=== PATIENT | female | born 1990 | race Hispanic/Latino ===

== ENCOUNTER → 2016-10-21 | Outpatient (CLI) | payer BC ==
[2016-10-21 17:25] LABS: CHLORIDE,CL 107 mmol/L (98-110); SODIUM,NA 140 mmol/L (136-146)
== END ==
LOC: MW.CHOBGYN 16:45
PROVIDERS: ATTEND Nurse Practitioner Women's Health
DX: Z34.90 Encounter for supervision of normal pregnancy, unspecified, unspecified trimester (principal)
CPT/HCPCS: 36415; 80053

== ENCOUNTER → 2016-11-10 | Outpatient (CLI) | payer BC | LOC: MW.CHOBGYN 11:40 | PROVIDERS: ATTEND Advanced Practice Midwife | DX: Z34.90 Encounter for supervision of normal pregnancy, unspecified, unspecified trimester (principal) | CPT/HCPCS: 87081; 87480; 87510; 87660 ==

== ENCOUNTER 2016-12-02 11:01 | Inpatient (IN) | payer BC ==
[2016-12-02] MEDS ORDERED: Misoprostol 200 MCG Tab PO PRN (11:58)
[2016-12-02] MEDS ORDERED: Sodium Chloride 0.9% 10 ML Syringe FLUSH PRN (11:58)
[2016-12-02] MEDS ORDERED: Sodium Chloride 0.9% 2.5 ML Syringe FLUSH PRN (11:58)
[2016-12-02] MEDS ORDERED: Terbutaline 1 MG/ML SDV SUBCUT PRN (11:58)
[2016-12-02] MEDS ORDERED: Water For Irrigation,Sterile 1,000 ML Container IRR PRN (11:58)
[2016-12-02] MEDS ORDERED: Lidocaine 1% 50 ML MDV INJECT PRN (11:58)
[2016-12-02] MEDS ORDERED: Nalbuphine 10 MG/1 ML Vial IVPUSH PRN (11:58)
[2016-12-02] MEDS ORDERED: Methylergonovine 0.2 MG/1 ML Amp IM PRN (11:58)
[2016-12-02] MEDS ORDERED: Butorphanol 1 MG/ML SDV IVPUSH PRN (11:58)
[2016-12-02] MEDS ORDERED: Carboprost Tromethamine 250 MCG/1 ML Amp IM PRN (11:58)
[2016-12-02] MEDS ORDERED: Oxytocin/Lactated Ringers 30 UNIT/500 ML BAG IV SCH ×2 (12:00→18:00)
--- NOTE | 2016-12-02 12:08 | PCM.LDHP ---
L&D History of Present Illness - General Date of Service: 12/02/16 Admit Problem/Dx: Admission Diagnosis/Problem Admission Diagnosis/Problem Source of Information: Patient History Limitations: Reports: No limitations - History of Present Illness Improves with: Reports: None Worsens with: Reports: None Associated Symptoms: Reports: N H&P Review of Systems - Review of Systems: Review Of Systems: See Below General: Reports: no symptoms HEENT: Reports: no symptoms Pulmonary: Reports: No Symptoms Cardiovascular: Reports: no symptoms Gastrointestinal: Reports: No symptoms Genitourinary: Reports: no symptoms Musculoskeletal: Reports: no symptoms Skin: Reports: no symptoms Psychiatric: Reports: no symptoms Neurological: Reports: No Symptoms Hematologic/Lymphatic: Reports: no symptoms Immunologic: Reports: no symptoms L&D Exam - Exam Exam: See Below - OB Specific Fundal Height in cm: 37 Contraction Intensity: Mild to Moderate movement: active heart tones: present Presentation: Vertex Problem List Initiated/Reviewed/Updated: Yes Assessment/Plan Comment:: Term followed in the clinic without any problem presented today to her appointment with a mild contraction and bloody show with a possibility of spontaneous rupture of the membrane that was confirmed by Amnisure cervical examination the patient is dilated to 1/90/v/-1. Planning to admit her and start her on Cytotec and Pitocin as per protocol.
[2016-12-02] MEDS ORDERED: Misoprostol 25 MCG (1/4 of 100 MCG) Tab PO SCH (12:30)
[2016-12-02] MEDS ORDERED: Misoprostol 25 MCG (1/4 of 100 MCG) Tab VAG SCH (12:30)
[2016-12-02] MEDS ORDERED: Misoprostol 25 MCG (1/4 of 100 MCG) Tab PO PRN (16:30)
[2016-12-02] MEDS ORDERED: Misoprostol 25 MCG (1/4 of 100 MCG) Tab VAG PRN (16:30)
--- NOTE | 2016-12-02 20:57 | PCM.PREANE ---
Preanesthetic Assessment - Anesthesia/Transfusion/Family Hx Anesthesia History: Prior Anesthesia Without Reaction Transfusion History: No Prior Transfusion(s) - Review of Systems General: No Symptoms Pulmonary: No Symptoms Cardiovascular: No Symptoms Gastrointestinal: No symptoms Neurological: No Symptoms Other: Reports: None - Physical Assessment Pulse: 100 O2 Sat by Pulse Oximetry: 98 Respiratory Rate: 22 Blood Pressure: 136/93 Height: 4 ft 11 in Weight: 69.853 kg ASA Class: 2 Mental Status: Alert & Oriented x3 Airway Class: Mallampati = 2 Dentition: Reports: Normal Dentition Thyro-Mental Finger Breadths: 3 Mouth Opening Finger Breadths: 3 ROM/Head Extension: Full Lungs: Clear to auscultation, Normal respiratory effort Cardiovascular: Regular Rate, Regular Rhythm - Lab Values: Laboratory Last Values WBC 9.96 K/uL (4.0-11.0) 12/02/16 12:23 RBC 4.18 M/uL (4.30-5.90) L 12/02/16 12:23 Hgb 11.0 g/dL (12.0-16.0) L 12/02/16 12:23 Hct 35.1 % (36.0-46.0) L 12/02/16 12:23 MCV 84.0 fL (80.0-98.0) 12/02/16 12:23 MCH 26.3 pg (27.0-32.0) L 12/02/16 12:23 MCHC 31.3 g/dL (31.0-37.0) 12/02/16 12:23 RDW Std Deviation 43.4 fl (28.0-62.0) 12/02/16 12:23 RDW Coeff of Oskar 14 % (11.0-15.0) 12/02/16 12:23 Plt Count 244 K/uL (150-400) 12/02/16 12:23 MPV 10.90 fL (7.40-12.00) 12/02/16 12:23 Nucleated RBC % 0.0 /100WBC 12/02/16 12:23 Nucleated RBCs # 0 K/uL 12/02/16 12:23 Blood Type O POSITIVE 12/02/16 12:23 Antibody Screen NEGATIVE 12/02/16 12:23 - Allergies Allergies/Adverse Reactions: Allergies Allergy/AdvReac Type Severity Reaction Status Date / Time hydroquinone Allergy Rash Verified 12/02/16 12:12 - Acknowledgements Anesthesia Type Planned: Epidural Pt an Appropriate Candidate for the Planned Anesthesia: Yes Alternatives and Risks of Anesthesia Discussed w Pt/Guardian: Yes Pt/Guardian Understands and Agrees with Anesthesia Plan: Yes PreAnesthesia Questionnaire HEENT History: Reports: None Cardiovascular History: Reports: None Respiratory History: Reports: None Gastrointestinal History: Reports: None Genitourinary History: Reports: None [employer] OFFICER History: Reports: : 1 Para: 0 LMP (Approximate): Musculoskeletal History: Reports: None Neurological History: Reports: None Psychiatric History: Reports: None Endocrine/Metabolic History: Reports: None Hematologic History: Reports: None Immunologic History: Reports: None Oncologic (Cancer) History: Reports: None Dermatologic History: Reports: None - Infectious Disease History Infectious Disease History: Reports: Chicken pox - SUBSTANCE USE Smoking Status *Q: Never Smoker Second Hand Smoke Exposure: No Recreational Drug Use History: No - CURRENT (IN HOUSE) MEDS Current Meds: Current Medications Butorphanol Tartrate (Stadol) 1 mg IVPUSH Q1H PRN PRN Reason: Pain Carboprost Tromethamine (Hemabate Ds) 250 mcg IM ASDIRECTED PRN PRN Reason: Post Hemorrhage Lactated Ringer's (Ringers, Lactated) 1,000 mls @ 150 mls/hr IV ASDIRECTED ODILIA Oxytocin/Lactated Ringer's (Pitocin In Lr 30 Units/500 Ml) 30 unit in 500 mls @ 2 mls/hr IV TITRATE ODILIA; 2 MUNITS/MIN PRN Reason: Protocol Lidocaine HCl (Xylocaine 1%) 50 ml INJECT .ONCE PRN PRN Reason: Laceration repair Methylergonovine Maleate (Methergine) 0.2 mg IM ASDIRECTED PRN PRN Reason: Post Hemorrhage Misoprostol (Cytotec) 200 mcg PO .ONCE PRN PRN Reason: Post Hemorrhage Misoprostol (Cytotec) 25 mcg VAG .ONCE ODILIA Last Admin: 12/02/16 12:48 Dose: 25 mcg Misoprostol (Cytotec) 25 mcg VAG Q4H PRN PRN Reason: Cervical Ripening Stop: 12/03/16 20:31 Misoprostol (Cytotec) 25 mcg PO .ONCE ODILIA Last Admin: 12/02/16 12:48 Dose: 25 mcg Misoprostol (Cytotec) 25 mcg PO Q4H PRN PRN Reason: Cervical Ripening Stop: 12/03/16 20:31 Sodium Chloride (Saline Flush) 10 ml FLUSH ASDIRECTED PRN PRN Reason: Keep Vein Open Sodium Chloride (Saline Flush) 2.5 ml FLUSH ASDIRECTED PRN PRN Reason: Keep Vein Open Sterile Water (Sterile Water For Irrigation) 1,000 ml IRR ASDIRECTED PRN PRN Reason: delivery Terbutaline Sulfate (Brethine) 0.25 mg SUBCUT ASDIRECTED PRN PRN Reason: Tacysystole Discontinued Medications Oxytocin/Lactated Ringer's (Pitocin In Lr 30 Units/500 Ml) 30 unit in 500 mls @ 999 mls/hr IV TITRATE ODILIA PRN Reason: 999 MUNITS/MIN Stop: 12/02/16 12:31 Nalbuphine HCl (Nubain) 10 mg IVPUSH Q1H PRN PRN Reason: Pain (severe 7-10) Stop: 12/02/16 13:59
[2016-12-02] MEDS ORDERED: fentaNYL 100 MCG/2 ML SDV ONE (20:58)
[2016-12-02] MEDS ORDERED: Ropivacaine HCl/PF 100 ML ONE (20:59)
[2016-12-02] MEDS: Lactated Ringers 1,000 ML IV SCH (21:20)
[2016-12-03] MEDS ORDERED: ceFAZolin 2 GM in Premix Bag 1 BAG IV ONE (04:36)
[2016-12-03] MEDS ORDERED: Sodium Chloride 0.9% 2.5 ML Syringe FLUSH PRN (04:36)
[2016-12-03] MEDS ORDERED: Sodium Chloride 0.9% 10 ML Syringe FLUSH PRN (04:36)
[2016-12-03] MEDS ORDERED: Oxytocin 10 Units/1 ML SDV ONE (04:45)
[2016-12-03] MEDS ORDERED: Lactated Ringers 1,000 ML IV SCH (04:45)
[2016-12-03] MEDS: Lactated Ringers 1,000 ML IV SCH ×3 (04:45→17:35)
[2016-12-03] MEDS ORDERED: Ondansetron 4 MG/2 ML SDV ONE (04:45)
[2016-12-03] MEDS ORDERED: Citric Acid/Sodium Citrate Solution 30 ML Cup PO SCH (04:45)
[2016-12-03] MEDS ORDERED: Morphine PF 10 MG/10 ML SDV ONE (04:46)
[2016-12-03] MEDS ORDERED: ePHEDrine 50 MG/ML SDV ONE (04:47)
[2016-12-03] MEDS ORDERED: Sodium Chloride 0.9% 20 ML ONE (04:47)
[2016-12-03] MEDS ORDERED: ceFAZolin 1 GM Vial ONE (04:47)
[2016-12-03] MEDS ORDERED: Bupivacaine 0.5% 10 ML SDV ONE (04:52)
[2016-12-03] MEDS ORDERED: Nalbuphine 10 MG/1 ML Vial IVPUSH PRN (04:54)
[2016-12-03] MEDS ORDERED: fentaNYL 100 MCG/2 ML SDV IVPUSH PRN (04:54)
[2016-12-03] MEDS ORDERED: Acetaminophen/oxyCODONE 325-5 MG Tab PO PRN ×2 (04:54→05:54)
--- NOTE | 2016-12-03 04:56 | PCM.SN ---
- Free Text/Narrative Note: C section called for second stage labor arrest. Pt complete for 5.5 hours and pushing without response. Pt has working labor epidural/ Has received 4+ liters of fluid during labor. last sip of water about 1 hr ago; History reviewed with pt. Pt examined. Plan: epidural for c/s with epidural duramorph for post op analgesia.
[2016-12-03] MEDS ORDERED: Octyl 2-Cyanoacrylate 1 Tube ONE (05:44)
[2016-12-03] MEDS ORDERED: diphenhydrAMINE 50 MG/ML SDV IVPUSH PRN (05:54)
[2016-12-03] MEDS ORDERED: Bisacodyl 10 MG Supp RECTAL PRN (05:54)
[2016-12-03] MEDS ORDERED: Lanolin 100% Cream 7 GM Tube TOP PRN (05:54)
[2016-12-03] MEDS ORDERED: Ondansetron 4 MG/2 ML SDV IV PRN (05:54)
--- NOTE | 2016-12-03 05:54 | PCM.OPNOTE ---
- General Post-Op/Procedure Note Date of Surgery/Procedure: 12/03/16 Pre Op Diagnosis: IUP term faliear to progress Post-Op Diagnosis: Same Anesthesia Technique: Epidural Primary Surgeon: Esdras Chamberlain EBL in mLs: 750 Complications: None Condition: Good
[2016-12-03] MEDS: Ketorolac 30 MG/ML SDV IVPUSH SCH ×3 (06:20→21:23)
--- NOTE | 2016-12-03 06:55 | PCM.POSTAN ---
POST ANESTHESIA ASSESSMENT - MENTAL STATUS Mental Status: alert, oriented - RESPIRATORY Respiratory Status: respiratory rate WNL, airway patent, O2 saturation stable - CARDIOVASCULAR CV Status: pulse rate WNL, blood pressure stable - GASTROINTESTINAL GI Status: no symptoms - POST OP HYDRATION Hydration Status: adequate & stable
--- NOTE | 2016-12-03 08:05 | OR ---
SURGEON: Esdras Chamberlain MD DATE OF PROCEDURE: PREOPERATIVE DIAGNOSES: Term , spontaneous rupture of the membranes, failure to progress, possible due to cephalopelvic disproportion. POSTOPERATIVE DIAGNOSES: Term , spontaneous rupture of the membranes, failure to progress, possible due to cephalopelvic disproportion. OPERATION PERFORMED: Primary low transverse section. NAIL TECHNICIAN: Dr. Brody. ANESTHESIA: Epidural, Jaswinder Ward and Dr. Camargo. ESTIMATED BLOOD LOSS: 750 mL. COMPLICATIONS: None. FINDINGS: A viable male fetus. scores reported to be 8 and 9 and the weight 615. INDICATIONS: This patient is 26-year-old primigravida and she is followed in our office. She is 4 feet 10 inches. She had no complication. Her GBS status was otherwise negative. She admitted early in the morning of her admission with spontaneous rupture of the membrane. At the time of admission, she was 1 cm, complete vertex, and -3 station. The patient responded to Cytotec 1 single dose and the NG continued to progress. She became complete, vertex, and -3. She had a small forward bends and that was ruptured by me and was clear fluid. The patient pushed in excess of 2 hours without any further descent because of her height and possibility and possible failure to descend possible due to CPD is entertained, a decision was made to do a primary low transverse section. DESCRIPTION OF PROCEDURE: The patient was brought to the OR, properly identified, and after epidural anesthesia, the patient was prepped and draped in sterile fashion as usual. Low transverse Pfannenstiel skin incision was done. Shai fascia and rectus fascia was opened in direction of the incision. The 2 recti muscles were and peritoneal cavity was entered. Bladder flap was raised in the usual manner pushing the bladder away from the lower uterine segment. Low transverse uterine incision was done and extended manually with the hand. Fetus was delivered and it was in vertex position. The fetus cried immediately. The score reported to be 8 and 9 and the weight 613. The placenta delivered spontaneous, complete, and intact. Repair of the lower uterine segment was done with 2-0 Vicryl continuous interlocking in 2 layers. Reperitonealization done with 2-0 Vicryl continuous. The peritoneal cavity was evacuated completely from all blood and blood clot and closed with 3-0 Vicryl continuous. The rectus fascia was closed with #1 PDS continuous and Shai's fascia with 3-0 Vicryl continuous and the skin closed with skin clips and Dermabond. Instrument and sponge count was correct. The patient tolerated the procedure well and went to recovery room in stable general condition. LUTHER JONES /[id number]
[2016-12-03] MEDS: Docusate Sodium 100 MG Cap PO SCH ×2 (11:03→21:23)
[2016-12-03] MEDS ORDERED: Benzocaine/Menthol 20%-0.5% Spray 78 GM Cannister TOP PRN (15:20)
[2016-12-03] MEDS ORDERED: Witch Hazel Medicated Pads 40/Jar TOP PRN (15:20)
[2016-12-04] MEDS: Ketorolac 30 MG/ML SDV IVPUSH SCH ×2 (03:35→09:20)
--- NOTE | 2016-12-04 08:00 | PCM48HPAN ---
Post Anesthesia Note - EVALUATION WITHIN 48HRS OF ANESTHETIC Vital Signs in Normal Range: Yes Patient Participated in Evaluation: Yes Respiratory Function Stable: Yes Airway Patent: Yes Cardiovascular Function Stable: Yes Hydration Status Stable: Yes Pain Control Satisfactory: Yes Nausea and Vomiting Control Satisfactory: Yes Mental Status Recovered: Yes
[2016-12-04] MEDS: Docusate Sodium 100 MG Cap PO SCH ×2 (09:19→21:28)
[2016-12-04] MEDS ORDERED: Ibuprofen 800 MG Tab PO PRN (12:00)
--- NOTE | 2016-12-04 12:06 | PCM.PNPP ---
- General Info Date of Service: 12/04/16 Functional Status: Reports: pain controlled - Review of Systems General: Reports: No Symptoms HEENT: Reports: no symptoms Pulmonary: Reports: no symptoms Cardiovascular: Reports: No Symptoms Gastrointestinal: Reports: No symptoms Genitourinary: Reports: no symptoms Musculoskeletal: Reports: no symptoms Skin: Reports: no symptoms Neurological: Reports: No Symptoms Psychiatric: Reports: no symptoms - General Info Date of Service: 12/04/16 - Patient Data Vital Signs - most recent: Last Vital Signs Temp 36.6 C 12/04/16 08:40 Pulse 114 H 12/04/16 08:40 Resp 16 12/04/16 08:40 BP 115/75 12/04/16 08:40 Pulse Ox 99 12/04/16 08:40 Weight - most recent: 69.853 kg I&O - last 24 hours: Intake & Output 12/03/16 12/04/16 12/04/16 22:59 06:59 14:59 Intake Total 997 Output Total 900 1650 Balance 97 -1650 Lab Results - last 24 hrs: Laboratory Results - last 24 hr 12/04/16 Range/Units 06:35 Hgb 8.7 L (12.0-16.0) g/dL Hct 28.0 L (36.0-46.0) % Med Orders - Current: Current Medications Benzocaine/Menthol (Dermoplast Pain Relief 20%-0.5% [place]) 78 gm TOP ASDIRECTED PRN PRN Reason: Hemorrhoids Last Admin: 12/03/16 15:37 Dose: 1 spray Bisacodyl (Dulcolax) 10 mg RECTAL .ONCE PRN PRN Reason: Constipation Butorphanol Tartrate (Stadol) 1 mg IVPUSH Q1H PRN PRN Reason: Pain Carboprost Tromethamine (Hemabate Ds) 250 mcg IM ASDIRECTED PRN PRN Reason: Post Hemorrhage Citric Acid/Sodium Citrate (Bicitra Solution) 30 ml PO .ONCE ODILIA Last Admin: 12/03/16 04:58 Dose: 30 ml Diphenhydramine HCl (Benadryl) 25 mg IVPUSH Q6H PRN PRN Reason: Itching or Nausea Last Admin: 12/03/16 11:03 Dose: 25 mg Docusate Sodium (Colace) 100 mg PO BID ODILIA Last Admin: 12/04/16 09:19 Dose: 100 mg Emollient Ointment (Lansinoh Hpa) 0 gm TOP ASDIRECTED PRN PRN Reason: Sore Nipples Last Admin: 12/04/16 05:58 Dose: 1 tube Lactated Ringer's (Ringers, Lactated) 1,000 mls @ 150 mls/hr IV ASDIRECTED [facility] Last Admin: 12/03/16 04:45 Dose: 150 mls/hr Oxytocin/Lactated Ringer's (Pitocin In Lr 30 Units/500 Ml) 30 unit in 500 mls @ 2 mls/hr IV TITRATE ODILIA; 2 MUNITS/MIN PRN Reason: Protocol Lactated Ringer's (Ringers, Lactated) 1,000 mls @ 500 mls/hr IV .BOLUS ODILIA Lactated Ringer's (Ringers, Lactated) 1,000 mls @ 125 mls/hr IV ASDIRECTED [facility] Last Infusion: 12/04/16 02:43 Dose: Infused Ibuprofen (Motrin) 800 mg PO Q8H PRN PRN Reason: mild pain or fever Ketorolac Tromethamine (Toradol) 30 mg IVPUSH Q6H [facility] Stop: 12/04/16 21:31 Last Admin: 12/04/16 09:20 Dose: 30 mg Lidocaine HCl (Xylocaine 1%) 50 ml INJECT .ONCE PRN PRN Reason: Laceration repair Methylergonovine Maleate (Methergine) 0.2 mg IM ASDIRECTED PRN PRN Reason: Post Hemorrhage Misoprostol (Cytotec) 200 mcg PO .ONCE PRN PRN Reason: Post Hemorrhage Misoprostol (Cytotec) 25 mcg VAG .ONCE [facility] Last Admin: 12/02/16 12:48 Dose: 25 mcg Misoprostol (Cytotec) 25 mcg PO .ONCE [facility] Last Admin: 12/02/16 12:48 Dose: 25 mcg Ondansetron HCl (Zofran) 4 mg IV Q4H PRN PRN Reason: Nausea/Vomiting Oxycodone/Acetaminophen (Percocet 325-5 Mg) 1 tab PO ONETIME PRN PRN Reason: Pain (moderate 4-6) Oxycodone/Acetaminophen (Percocet 325-5 Mg) 1 tab PO Q4H PRN PRN Reason: Pain (moderate 4-6) Oxycodone/Acetaminophen (Percocet 325-5 Mg) 2 tab PO Q4H PRN PRN Reason: Pain (moderate 4-6) Sodium Chloride (Saline Flush) 10 ml FLUSH ASDIRECTED PRN PRN Reason: Keep Vein Open Sodium Chloride (Saline Flush) 2.5 ml FLUSH ASDIRECTED PRN PRN Reason: Keep Vein Open Sodium Chloride (Saline Flush) 10 ml FLUSH ASDIRECTED PRN PRN Reason: Keep Vein Open Sodium Chloride (Saline Flush) 2.5 ml FLUSH ASDIRECTED PRN PRN Reason: Keep Vein Open Sterile Water (Sterile Water For Irrigation) 1,000 ml IRR ASDIRECTED PRN PRN Reason: delivery Terbutaline Sulfate (Brethine) 0.25 mg SUBCUT ASDIRECTED PRN PRN Reason: Tacysystole Witch Arianne (Tucks) 1 pad TOP ASDIRECTED PRN PRN Reason: Hemorrhoids Last Admin: 12/03/16 15:38 Dose: 1 pad Discontinued Medications Bupivacaine HCl (Sensorcaine-Mpf 0.5%) Confirm Administered Dose 20 ml .ROUTE .STK-MED ONE Stop: 12/03/16 04:53 Last Admin: 12/03/16 17:52 Dose: Not Given Cefazolin Sodium (Ancef) Confirm Administered Dose 1 gm .ROUTE .STK-MED ONE Stop: 12/03/16 04:48 Ephedrine Sulfate (Ephedrine Sulfate) Confirm Administered Dose 50 mg .ROUTE .STK-MED ONE Stop: 12/03/16 04:48 Fentanyl (Sublimaze) Confirm Administered Dose 100 mcg .ROUTE .STK-MED ONE Stop: 12/02/16 20:59 Last Admin: 12/03/16 17:52 Dose: Not Given Fentanyl (Sublimaze) 50 mcg IVPUSH Q5M PRN PRN Reason: Pain (severe 7-10) Stop: 12/04/16 04:55 Oxytocin/Lactated Ringer's (Pitocin In Lr 30 Units/500 Ml) 30 unit in 500 mls @ 999 mls/hr IV TITRATE ODILIA PRN Reason: 999 MUNITS/MIN Stop: 12/02/16 12:31 Last Admin: 12/03/16 17:52 Dose: Not Given Ropivacaine (Naropin 0.2%) Confirm Administered Dose 100 mls @ as directed .ROUTE .STK-MED ONE Stop: 12/02/16 21:00 Last Admin: 12/03/16 17:52 Dose: Not Given Cefazolin Sodium/Dextrose 2 gm (/ Premix) 50 mls @ 100 mls/hr IV ONETIME ONE Stop: 12/03/16 05:05 Sodium Chloride (Normal Saline) Confirm Administered Dose 20 mls @ as directed .ROUTE .STK-MED ONE Stop: 12/03/16 04:48 Ketorolac Tromethamine (Toradol) 30 mg IVPUSH Q6H ODILIA Stop: 12/04/16 06:01 Last Admin: 12/03/16 15:12 Dose: 30 mg Misoprostol (Cytotec) 25 mcg VAG Q4H PRN PRN Reason: Cervical Ripening Stop: 12/03/16 20:31 Misoprostol (Cytotec) 25 mcg PO Q4H PRN PRN Reason: Cervical Ripening Stop: 12/03/16 20:31 Morphine Sulfate (Duramorph Pf) Confirm Administered Dose 10 mg .ROUTE .STK-MED ONE Stop: 12/03/16 04:47 Nalbuphine HCl (Nubain) 10 mg IVPUSH Q1H PRN PRN Reason: Pain (severe 7-10) Stop: 12/02/16 13:59 Nalbuphine HCl (Nubain) 2.5 mg IVPUSH Q3H PRN PRN Reason: Pruritis Stop: 12/04/16 04:55 Octyl Cyanoacrylate (Dermabond Advance) Confirm Administered Dose 1 applic .ROUTE .STK-MED ONE Stop: 12/03/16 05:45 Ondansetron HCl (Zofran) Confirm Administered Dose 4 mg .ROUTE .STK-MED ONE Stop: 12/03/16 04:46 Oxytocin (Pitocin) Confirm Administered Dose 20 unit .ROUTE .STK-MED ONE Stop: 12/03/16 04:46 - Interaction Support Person: - Recovery Exam Fundal Tone: Firm Fundal Level: At Umbilicus Fundal Placement: Midline Lochia Amount: Scant Lochia Color: Rubra/Red Perineum Description: Intact, Minimal Bruising/Swelling Episiotomy/Laceration: None Bladder Status: Voiding Urinary Elimination: Voided - Exam General: alert, oriented HEENT: Pupils equal Neck: supple Lungs: Clear to auscultation, Normal respiratory effort Cardiovascular: Regular Rate, Regular Rhythm Abdomen: bowel sounds present, soft, no tenderness, no distension Extremities: no edema Skin: warm, dry, intact Wound/Incisions: healing well Neurological: no new focal deficit Psy/Mental Status: alert, normal affect, normal mood - Problem List Review Problem List Initiated/Reviewed/Updated: Yes - My Orders Last 24 Hours: My Active Orders 12/03/16 15:20 Benzocaine/Menthol [Dermoplast Pain Relief 20%-0.5% [place]] 78 gm TOP ASDIRECTED PRN Witch Arianne [Tucks] 1 pad TOP ASDIRECTED PRN 12/03/16 21:30 Ketorolac [Toradol] 30 mg IVPUSH Q6H 12/04/16 12:00 Ibuprofen [Motrin] 800 mg PO Q8H PRN - Plan Plan:: Term followed in the clinic without any problem presented today to her appointment with a mild contraction and bloody show with a possibility of spontaneous rupture of the membrane that was confirmed by Amnisure cervical examination the patient is dilated to 1/90/v/-1. Planning to admit her and start her on Cytotec and Pitocin as per protocol. 12/04/16 doing well will send home in am
[2016-12-04] MEDS: Acetaminophen/oxyCODONE 325-5 MG Tab PO PRN ×2 (14:54→18:15)
[2016-12-04] MEDS ORDERED: Hydrocortisone 2.5% Crm 30 GM Tube TOP PRN ×2 (20:36→23:08)
[2016-12-05] MEDS: Docusate Sodium 100 MG Cap PO SCH (09:02)
[2016-12-05 09:10] VITALS: BP 123/84
--- NOTE | 2016-12-05 11:32 | PCM.DCSUM1 ---
Discharge Summary - Discharge Data Discharge Date: 12/05/16 Discharge Disposition: Home, Self-Care 01 Condition: Good - Patient Instructions Diet: Usual Diet as Tolerated Activity: As Tolerated Driving: Do Not Drive Showering/Bathing: December Wound/Incision Care: Keep Operative Site/Wound Site Clean and Dry Notify Provider of: Fever, Increased Pain, Swelling and Redness, Drainage, Nausea and/or Vomiting - Discharge Plan Referrals: [facility] [Outside] Esdras Chamberlain MD [Physician] - (2 week- December 16 @ 9:30am w/ Dr. Chamberlain week- January 13 @ 10:45am w/ Dr. Chamberlain ) - General Info Date of Service: 12/05/16 Functional Status: Reports: pain controlled - Review of Systems General: Reports: No Symptoms HEENT: Reports: no symptoms Pulmonary: Reports: no symptoms Cardiovascular: Reports: No Symptoms Gastrointestinal: Reports: No symptoms Genitourinary: Reports: no symptoms Musculoskeletal: Reports: no symptoms Skin: Reports: no symptoms Neurological: Reports: No Symptoms Psychiatric: Reports: no symptoms - Patient Data Vitals - Most Recent: Last Vital Signs Temp 36.4 C 12/05/16 09:08 Pulse 97 12/05/16 09:08 Resp 16 12/05/16 09:08 BP 123/84 12/05/16 09:08 Pulse Ox 97 12/05/16 09:08 Weight - Most Recent: 69.853 kg Lab Results - Last 24 hrs: Laboratory Results - last 24 hr 12/05/16 Range/Units 05:30 WBC 13.97 H (4.0-11.0) K/uL RBC 2.93 L (4.30-5.90) M/uL Hgb 7.9 L (12.0-16.0) g/dL Hct 25.0 L (36.0-46.0) % MCV 85.3 (80.0-98.0) fL MCH 27.0 (27.0-32.0) pg MCHC 31.6 (31.0-37.0) g/dL RDW Std Deviation 45.6 (28.0-62.0) fl RDW Coeff of Oskar 15 (11.0-15.0) % Plt Count 208 (150-400) K/uL MPV 9.80 (7.40-12.00) fL Neut % (Auto) 73.0 (48.0-80.0) % Lymph % (Auto) 19.3 (16.0-40.0) % [place] % (Auto) 5.5 (0.0-15.0) % Eos % (Auto) 2.1 (0.0-7.0) % Baso % (Auto) 0.1 (0.0-1.5) % Neut # (Auto) 10.2 H (1.4-5.7) K/uL Lymph # (Auto) 2.7 H (0.6-2.4) K/uL [place] # (Auto) 0.8 (0.0-0.8) K/uL Eos # (Auto) 0.3 (0.0-0.7) K/uL Baso # (Auto) 0.0 (0.0-0.1) K/uL Nucleated RBC % 0.0 /100WBC Nucleated RBCs # 0 K/uL Med Orders - Current: Current Medications Benzocaine/Menthol (Dermoplast Pain Relief 20%-0.5% [place]) 78 gm TOP ASDIRECTED PRN PRN Reason: Hemorrhoids Last Admin: 12/03/16 15:37 Dose: 1 spray Bisacodyl (Dulcolax) 10 mg RECTAL .ONCE PRN PRN Reason: Constipation Butorphanol Tartrate (Stadol) 1 mg IVPUSH Q1H PRN PRN Reason: Pain Carboprost Tromethamine (Hemabate Ds) 250 mcg IM ASDIRECTED PRN PRN Reason: Post Hemorrhage Citric Acid/Sodium Citrate (Bicitra Solution) 30 ml PO .ONCE ODILIA Last Admin: 12/03/16 04:58 Dose: 30 ml Diphenhydramine HCl (Benadryl) 25 mg IVPUSH Q6H PRN PRN Reason: Itching or Nausea Last Admin: 12/03/16 11:03 Dose: 25 mg Docusate Sodium (Colace) 100 mg PO BID [facility] Last Admin: 12/05/16 09:02 Dose: 100 mg Emollient Ointment (Lansinoh Hpa) 0 gm TOP ASDIRECTED PRN PRN Reason: Sore Nipples Last Admin: 12/04/16 05:58 Dose: 1 tube Hydrocortisone (Proctozone-Hc 2.5% Crm) 30 gm TOP ASDIRECTED PRN PRN Reason: Hemorrhoids Last Admin: 12/05/16 00:02 Dose: 1 applic Lactated Ringer's (Ringers, Lactated) 1,000 mls @ 150 mls/hr IV ASDIRECTED ODILIA Last Admin: 12/03/16 04:45 Dose: 150 mls/hr Oxytocin/Lactated Ringer's (Pitocin In Lr 30 Units/500 Ml) 30 unit in 500 mls @ 2 mls/hr IV TITRATE ODILIA; 2 MUNITS/MIN PRN Reason: Protocol Lactated Ringer's (Ringers, Lactated) 1,000 mls @ 500 mls/hr IV .BOLUS ODILIA Lactated Ringer's (Ringers, Lactated) 1,000 mls @ 125 mls/hr IV ASDIRECTED ODILIA Last Infusion: 12/04/16 02:43 Dose: Infused Ibuprofen (Motrin) 800 mg PO Q8H PRN PRN Reason: mild pain or fever Last Admin: 12/05/16 01:02 Dose: 800 mg Lidocaine HCl (Xylocaine 1%) 50 ml INJECT .ONCE PRN PRN Reason: Laceration repair Methylergonovine Maleate (Methergine) 0.2 mg IM ASDIRECTED PRN PRN Reason: Post Hemorrhage Misoprostol (Cytotec) 200 mcg PO .ONCE PRN PRN Reason: Post Hemorrhage Misoprostol (Cytotec) 25 mcg VAG .ONCE ODILIA Last Admin: 12/02/16 12:48 Dose: 25 mcg Misoprostol (Cytotec) 25 mcg PO .ONCE ODILIA Last Admin: 12/02/16 12:48 Dose: 25 mcg Ondansetron HCl (Zofran) 4 mg IV Q4H PRN PRN Reason: Nausea/Vomiting Oxycodone/Acetaminophen (Percocet 325-5 Mg) 1 tab PO ONETIME PRN PRN Reason: Pain (moderate 4-6) Oxycodone/Acetaminophen (Percocet 325-5 Mg) 1 tab PO Q4H PRN PRN Reason: Pain (moderate 4-6) Last Admin: 12/04/16 18:15 Dose: 1 tab Oxycodone/Acetaminophen (Percocet 325-5 Mg) 2 tab PO Q4H PRN PRN Reason: Pain (moderate 4-6) Sodium Chloride (Saline Flush) 10 ml FLUSH ASDIRECTED PRN PRN Reason: Keep Vein Open Sodium Chloride (Saline Flush) 2.5 ml FLUSH ASDIRECTED PRN PRN Reason: Keep Vein Open Sodium Chloride (Saline Flush) 10 ml FLUSH ASDIRECTED PRN PRN Reason: Keep Vein Open Sodium Chloride (Saline Flush) 2.5 ml FLUSH ASDIRECTED PRN PRN Reason: Keep Vein Open Sterile Water (Sterile Water For Irrigation) 1,000 ml IRR ASDIRECTED PRN PRN Reason: delivery Terbutaline Sulfate (Brethine) 0.25 mg SUBCUT ASDIRECTED PRN PRN Reason: Tacysystole Witch Arianne (Tucks) 1 pad TOP ASDIRECTED PRN PRN Reason: Hemorrhoids Last Admin: 12/03/16 15:38 Dose: 1 pad Discontinued Medications Bupivacaine HCl (Sensorcaine-Mpf 0.5%) Confirm Administered Dose 20 ml .ROUTE .STK-MED ONE Stop: 12/03/16 04:53 Last Admin: 12/03/16 17:52 Dose: Not Given Cefazolin Sodium (Ancef) Confirm Administered Dose 1 gm .ROUTE .STK-MED ONE Stop: 12/03/16 04:48 Ephedrine Sulfate (Ephedrine Sulfate) Confirm Administered Dose 50 mg .ROUTE .STK-MED ONE Stop: 12/03/16 04:48 Fentanyl (Sublimaze) Confirm Administered Dose 100 mcg .ROUTE .STK-MED ONE Stop: 12/02/16 20:59 Last Admin: 12/03/16 17:52 Dose: Not Given Fentanyl (Sublimaze) 50 mcg IVPUSH Q5M PRN PRN Reason: Pain (severe 7-10) Stop: 12/04/16 04:55 Hydrocortisone (Proctozone-Hc 2.5% Crm) 30 gm TOP ASDIRECTED PRN PRN Reason: Itching Oxytocin/Lactated Ringer's (Pitocin In Lr 30 Units/500 Ml) 30 unit in 500 mls @ 999 mls/hr IV TITRATE ODILIA PRN Reason: 999 MUNITS/MIN Stop: 12/02/16 12:31 Last Admin: 12/03/16 17:52 Dose: Not Given Ropivacaine (Naropin 0.2%) Confirm Administered Dose 100 mls @ as directed .ROUTE .STK-MED ONE Stop: 12/02/16 21:00 Last Admin: 12/03/16 17:52 Dose: Not Given Cefazolin Sodium/Dextrose 2 gm (/ Premix) 50 mls @ 100 mls/hr IV ONETIME ONE Stop: 12/03/16 05:05 Sodium Chloride (Normal Saline) Confirm Administered Dose 20 mls @ as directed .ROUTE .STK-MED ONE Stop: 12/03/16 04:48 Ketorolac Tromethamine (Toradol) 30 mg IVPUSH Q6H [facility] Stop: 12/04/16 06:01 Last Admin: 12/03/16 15:12 Dose: 30 mg Ketorolac Tromethamine (Toradol) 30 mg IVPUSH Q6H [facility] Stop: 12/04/16 21:31 Last Admin: 12/04/16 09:20 Dose: 30 mg Misoprostol (Cytotec) 25 mcg VAG Q4H PRN PRN Reason: Cervical Ripening Stop: 12/03/16 20:31 Misoprostol (Cytotec) 25 mcg PO Q4H PRN PRN Reason: Cervical Ripening Stop: 12/03/16 20:31 Morphine Sulfate (Duramorph Pf) Confirm Administered Dose 10 mg .ROUTE .STK-MED ONE Stop: 12/03/16 04:47 Nalbuphine HCl (Nubain) 10 mg IVPUSH Q1H PRN PRN Reason: Pain (severe 7-10) Stop: 12/02/16 13:59 Nalbuphine HCl (Nubain) 2.5 mg IVPUSH Q3H PRN PRN Reason: Pruritis Stop: 12/04/16 04:55 Octyl Cyanoacrylate (Dermabond Advance) Confirm Administered Dose 1 applic .ROUTE .STK-MED ONE Stop: 12/03/16 05:45 Ondansetron HCl (Zofran) Confirm Administered Dose 4 mg .ROUTE .STK-MED ONE Stop: 12/03/16 04:46 Oxytocin (Pitocin) Confirm Administered Dose 20 unit .ROUTE .STK-MED ONE Stop: 12/03/16 04:46 - Exam General: Reports: alert, oriented HEENT: Reports: Pupils equal, Pupils reactive, EOMI, Mucous membr. moist/pink Neck: Reports: supple Lungs: Reports: Clear to auscultation, Normal respiratory effort Cardiovascular: Reports: Regular Rate, Regular Rhythm Abdomen: Reports: bowel sounds present, soft, no tenderness, no distension (Female) Exam: Normal external exam, Normal speculum exam, Normal bimanual exam Rectal (Female) Exam: Normal Exam, Normal rectal tone Back Exam: Reports: normal inspection, full range of motion Extremities: Reports: no edema, normal pulses Skin: Reports: warm, dry, intact Wound/Incisions: Reports: healing well Neurological: Reports: no new focal deficit Psy/Mental Status: Reports: alert, normal affect, normal mood *Q Meaningful Use (DIS) - VTE *Q VTE Criteria *Q: - Stroke *Q Stroke Criteria *Q: - AMI *Q AMI Criteria *Q:
== END 2016-12-05 12:35 | disposition home or self-care (01) | DRG 540 ==
LOC: MW.OBCHECK 11:01 → MW.OB 11:03 → MW.OBCHECK 11:46 → MW.OB 11:47 → OBSVTOIN 12-03 05:29 → MW.OB 12-03 08:24
PROVIDERS: ADMIT Obstetrics & Gynecology; ATTEND Obstetrics & Gynecology
PROC: 10D00Z1 Extraction of Products of Conception, Low, Open Approach (ICD-10-PCS; principal; 2016-12-03)
DX: O65.9 Obstructed labor due to maternal pelvic abnormality, unspecified (principal); O63.1 Prolonged second stage (of labor); Z37.0 Single live birth; Z3A.39 39 weeks gestation of pregnancy
CPT/HCPCS: 01967; 01968; 36415; 59025; 85014; 85018; 85025; 85027; 86850; 86900; 86901; A9270-GY; J0690; J1200; J1885; J2270; J2405; J2590; J2795; J3010; J7120

== ENCOUNTER → 2016-12-02 | Outpatient (CLI) | payer BC | LOC: MW.CHOBGYN 10:45 | PROVIDERS: ATTEND Obstetrics & Gynecology | DX: Z34.90 Encounter for supervision of normal pregnancy, unspecified, unspecified trimester (principal) | CPT/HCPCS: 84112 ==

== ENCOUNTER 2019-08-01 08:00 | Inpatient (IN) | payer BC ==
[2019-08-01] MEDS ORDERED: Octyl 2-Cyanoacrylate 1 Tube ONE (08:26)
--- NOTE | 2019-08-01 09:18 | PCM.LDHP ---
L&D History of Present Illness - General Date of Service: 08/01/19 Admit Problem/Dx: Admission Diagnosis/Problem Admission Diagnosis/Problem Source of Information: Patient History Limitations: Reports: No Limitations - History of Present Illness Improves with: Reports: None Worsens with: Reports: None Associated Symptoms: Reports: N - Related Data Allergies/Adverse Reactions: Allergies Allergy/AdvReac Type Severity Reaction Status Date / Time hydroquinone Allergy Rash Verified 12/02/16 12:12 shellfish derived Allergy Hives Verified 07/26/19 12:44 Home Medications: Home Meds Calcium Carbonate [Tums] 1 tab.chew CHEW ASDIRECTED PRN 07/26/19 [History] Pnv No.95/Ferrous Fum/Folic AC [ Vitamin Tablet] 1 tab PO DAILY [History] Past Medical History HEENT History: Reports: None Cardiovascular History: Reports: None Respiratory History: Reports: None Gastrointestinal History: Reports: Other (See Below) Other Gastrointestinal History: heartburn during Genitourinary History: Reports: None 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: Musculoskeletal History: Reports: None Neurological History: Reports: None Psychiatric History: Reports: None Endocrine/Metabolic History: Reports: None Hematologic History: Reports: None Immunologic History: Reports: None Oncologic (Cancer) History: Reports: None Dermatologic History: Reports: None - Infectious Disease History Infectious Disease History: Reports: Chicken Pox - Past Surgical History Head Surgeries/Procedures: Reports: None HEENT Surgical History: Reports: Oral Surgery Other HEENT Surgeries/Procedures: wisdom teeth extraction Cardiovascular Surgical History: Reports: None Respiratory Surgical History: Reports: None GI Surgical History: Reports: Appendectomy Female Surgical History: Reports: Section Endocrine Surgical History: Reports: None Neurological Surgical History: Reports: None Musculoskeletal Surgical History: Reports: None Oncologic Surgical History: Reports: None Dermatological Surgical History: Reports: None Social & Family History - Family History Family Medical History: Unobtainable - Tobacco Use Smoking Status *Q: Never Smoker - Caffeine Use Caffeine Use: Reports: None - Recreational Drug Use Recreational Drug Use: No Drug Use in Last 12 Months: No H&P Review of Systems - Review of Systems: Review Of Systems: See Below General: Reports: No Symptoms HEENT: Reports: No Symptoms Pulmonary: Reports: No Symptoms Cardiovascular: Reports: No Symptoms Gastrointestinal: Reports: No Symptoms Genitourinary: Reports: No Symptoms Musculoskeletal: Reports: No Symptoms Skin: Reports: No Symptoms Psychiatric: Reports: No Symptoms Neurological: Reports: No Symptoms Hematologic/Lymphatic: Reports: No Symptoms Immunologic: Reports: No Symptoms L&D Exam - Exam Exam: See Below - Vital Signs Weight: 71.305 kg - OB Specific Fundal Height In cm: 40 Contraction Intensity: Mild Movement: Active Heart Tones: Present Presentation: Vertex - Fisher Score Fisher Score Cervix Position: Midposition Fisher Score Consistency: Firm Fisher Score Effacement: 31-50% Fisher Score Dilation: Closed Fisher Score Infant's Station: -3 Fisher Score Total: 2 - Exam General: Alert, Oriented HEENT: PERRLA, Conjunctiva Clear, EACs Clear, EOMI, Hearing Intact, Mucosa Moist & [place], Nares Patent, Normal Nasal Septum, Posterior Pharynx Clear, TMs Clear Neck: Supple, Trachea Midline Lungs: Clear to Auscultation, Normal Respiratory Effort Cardiovascular: Regular Rate, Regular Rhythm GI/Abdominal Exam: Normal Bowel Sounds, Soft, Non-Tender, No Organomegaly, No Distention, No Abnormal Bruit, No Mass, Pelvis Stable Rectal Exam: Normal Exam, Normal Rectal Tone Genitourinary: Normal external exam, Normal bimanual exam, Normal speculum exam Back Exam: Normal Inspection, Full Range of Motion Extremities: Normal Inspection, Normal Range of Motion, Non-Tender, No Pedal Edema, Normal Capillary Refill Skin: Warm, Dry, Intact Neurological: Cranial Nerves Intact, Reflexes Equal Bilateral Psychiatric: Alert, Normal Affect, Normal Mood Problem List Initiated/Reviewed/Updated: Yes Assessment/Plan Comment:: IUP 39+1 weks admitted for elective repeat C/section.
[2019-08-01] MEDS ORDERED: ceFAZolin 1 GM in Premix Bag 1 BAG IV ONE (09:48)
[2019-08-01] MEDS ORDERED: Sodium Chloride 0.9% 10 ML Syringe FLUSH PRN (09:48)
[2019-08-01] MEDS ORDERED: Citric Acid/Sodium Citrate Solution 30 ML Cup PO ONE (09:48)
[2019-08-01] MEDS ORDERED: Sodium Chloride 0.9% 10 ML SDV IV PRN (09:48)
[2019-08-01] MEDS ORDERED: Sodium Chloride 0.9% 2.5 ML Syringe FLUSH PRN (09:48)
[2019-08-01] MEDS ORDERED: Morphine PF 10 MG/10 ML SDV ONE (09:49)
[2019-08-01] MEDS ORDERED: Ondansetron 4 MG/2 ML SDV ONE (09:53)
[2019-08-01] MEDS ORDERED: Oxytocin 10 Units/1 ML SDV ONE (09:53)
[2019-08-01] MEDS: Lactated Ringers 1,000 ML IV SCH ×2 (09:55→10:42)
[2019-08-01] MEDS ORDERED: Oxytocin/0.9 % Sodium Chloride 30 UNIT/500 ML BAG IV SCH (10:00)
--- NOTE | 2019-08-01 10:04 | PCM.PREANE ---
Preanesthetic Assessment - Anesthesia/Transfusion/Family Hx Anesthesia History: Prior Anesthesia Without Reaction Family History of Anesthesia Reaction: No Transfusion History: No Prior Transfusion(s) - Physical Assessment NPO Status Date: 08/01/19 NPO Status Time: 00:05 Height: 1.5 m Weight: 71.305 kg ASA Class: 1 - Allergies Allergies/Adverse Reactions: Allergies Allergy/AdvReac Type Severity Reaction Status Date / Time hydroquinone Allergy Rash Verified 12/02/16 12:12 shellfish derived Allergy Hives Verified 07/26/19 12:44 - Acknowledgements Anesthesia Type Planned: Spinal Pt an Appropriate Candidate for the Planned Anesthesia: Yes Alternatives and Risks of Anesthesia Discussed w Pt/Guardian: Yes Pt/Guardian Understands and Agrees with Anesthesia Plan: Yes PreAnesthesia Questionnaire HEENT History: Reports: None Cardiovascular History: Reports: None Respiratory History: Reports: None Gastrointestinal History: Reports: Other (See Below) Other Gastrointestinal History: heartburn during Genitourinary History: Reports: None 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: Musculoskeletal History: Reports: None Neurological History: Reports: None Psychiatric History: Reports: None Endocrine/Metabolic History: Reports: None Hematologic History: Reports: None Immunologic History: Reports: None Oncologic (Cancer) History: Reports: None Dermatologic History: Reports: None - Infectious Disease History Infectious Disease History: Reports: Chicken Pox - Past Surgical History Head Surgeries/Procedures: Reports: None HEENT Surgical History: Reports: Oral Surgery Other HEENT Surgeries/Procedures: wisdom teeth extraction Cardiovascular Surgical History: Reports: None Respiratory Surgical History: Reports: None GI Surgical History: Reports: Appendectomy Female Surgical History: Reports: Section Endocrine Surgical History: Reports: None Neurological Surgical History: Reports: None Musculoskeletal Surgical History: Reports: None Oncologic Surgical History: Reports: None Dermatological Surgical History: Reports: None - SUBSTANCE USE Smoking Status *Q: Never Smoker Recreational Drug Use History: No - HOME MEDS Home Medications: Home Meds Calcium Carbonate [Tums] 1 tab.chew CHEW ASDIRECTED PRN 07/26/19 [History] Pnv No.95/Ferrous Fum/Folic AC [ Vitamin Tablet] 1 tab PO DAILY [History] - CURRENT (IN HOUSE) MEDS Current Meds: Current Medications Cefazolin Sodium/Dextrose 1 gm (/ Premix) 50 mls @ 100 mls/hr IV ONETIME ONE Stop: 08/01/19 10:17 Lactated Ringer's (Ringers, Lactated) 1,000 mls @ 500 mls/hr IV BOLUS ODILIA Last Admin: 08/01/19 09:55 Dose: 999 mls/hr Oxytocin/Sodium Chloride (Oxytocin 30 Unit/500 Ml-Ns) 30 unit in 500 mls @ 250 mls/hr IV TITRATE ODILIA Sodium Chloride (Saline Flush) 10 ml FLUSH ASDIRECTED PRN PRN Reason: Keep Vein Open Sodium Chloride (Saline Flush) 2.5 ml FLUSH ASDIRECTED PRN PRN Reason: Keep Vein Open Sodium Chloride (Normal Saline) 10 ml IV ASDIRECTED PRN PRN Reason: IV Use Discontinued Medications Citric Acid/Sodium Citrate (Bicitra Solution) 30 ml PO ONETIME ONE Stop: 08/01/19 09:49 Morphine Sulfate (Duramorph Pf) Confirm Administered Dose 10 mg .ROUTE .STK-MED ONE Stop: 08/01/19 09:50 Octyl Cyanoacrylate (Dermabond Advance) Confirm Administered Dose 1 applic .ROUTE .STK-MED ONE Stop: 08/01/19 08:27 Ondansetron HCl (Zofran) Confirm Administered Dose 4 mg .ROUTE .STK-MED ONE Stop: 08/01/19 09:54 Oxytocin (Pitocin) Confirm Administered Dose 20 unit .ROUTE .STK-MED ONE Stop: 08/01/19 09:54
[2019-08-01] MEDS ORDERED: Acetaminophen/oxyCODONE 325-5 MG Tab PO PRN ×3 (10:23→11:23)
[2019-08-01] MEDS ORDERED: Sodium Chloride 0.9% 20 ML ONE (10:36)
[2019-08-01] MEDS ORDERED: ceFAZolin 1 GM Vial ONE (10:36)
[2019-08-01] MEDS ORDERED: Phenylephrine/Normal Saline 100 MCG/ML 10 ML Syringe ONE ×2 (10:52→11:14)
[2019-08-01] MEDS ORDERED: Nalbuphine 10 MG/1 ML Vial IVPUSH PRN (10:53)
[2019-08-01] MEDS ORDERED: Tranexamic Acid 1,000 MG in Sodium Chloride 0.9% 100 ML IV PRN (11:23)
[2019-08-01] MEDS ORDERED: Methylergonovine 0.2 MG/1 ML Amp IM PRN (11:23)
[2019-08-01] MEDS ORDERED: Oxytocin 10 Units/1 ML SDV IM PRN (11:23)
[2019-08-01] MEDS ORDERED: Misoprostol 200 MCG Tab RECTAL PRN (11:23)
[2019-08-01] MEDS ORDERED: Bisacodyl 10 MG Supp RECTAL PRN (11:23)
[2019-08-01] MEDS ORDERED: Lanolin 100% Cream 7 GM Tube TOP PRN (11:23)
[2019-08-01] MEDS ORDERED: Ondansetron 4 MG/2 ML SDV IVPUSH PRN (11:23)
[2019-08-01] MEDS ORDERED: diphenhydrAMINE 50 MG/ML SDV IVPUSH PRN (11:23)
--- NOTE | 2019-08-01 11:26 | PCM.OPNOTE ---
- General Post-Op/Procedure Note Date of Surgery/Procedure: 08/01/19 Operative Procedure(s): Repeat C/section. Pre Op Diagnosis: [id number] wks previous C/section. Post-Op Diagnosis: Same Anesthesia Technique: Spinal Primary Surgeon: Esdras Chamberlain EBL in mLs: 650 Complications: None Condition: Good
[2019-08-01] MEDS ORDERED: Lactated Ringers 1,000 ML IV SCH (11:30)
[2019-08-01] MEDS: Ketorolac 30 MG/ML SDV IVPUSH SCH ×3 (12:03→23:57)
--- NOTE | 2019-08-01 12:25 | PCM.POSTAN ---
POST ANESTHESIA ASSESSMENT - MENTAL STATUS Mental Status: Alert - VITAL SIGNS Vital Signs: Last Vital Signs Temp 35.9 C 08/01/19 11:41 Pulse 73 08/01/19 12:21 Resp 18 08/01/19 12:21 BP 103/61 08/01/19 12:21 Pulse Ox 98 08/01/19 12:21 - RESPIRATORY Respiratory Status: Respiratory Rate WNL - CARDIOVASCULAR CV Status: Pulse Rate WNL - GASTROINTESTINAL GI Status: No Symptoms - POST OP HYDRATION Hydration Status: Adequate & Stable
--- NOTE | 2019-08-01 13:18 | OR ---
SURGEON: Esdras Chamberlain MD DATE OF PROCEDURE: 08/01/2019 PREOPERATIVE DIAGNOSES: Intrauterine at 39 and 1/7 weeks, previous section, admitted for elective repeat section. POSTOPERATIVE DIAGNOSES: Intrauterine at 39 and 1/7 weeks, previous section, admitted for elective repeat section. OPERATION PERFORMED: Repeat low-transverse section. PRIMARY SURGEON: Esdras Chamberlain MD. OTOLOGIST: Renate Salvador. ANESTHESIA: Spinal, Mr. Dewayne Sosa and Dr. Camargo. ESTIMATED BLOOD LOSS: 650 mL. COMPLICATIONS: None. FINDINGS: Viable male fetus. score reported to be 8 and 9. Normal uterus, tubes, and ovaries. INDICATIONS FOR SURGERY: This patient is 28. She had previous section for cephalopelvic disproportion. She is 39 and 1/7 weeks. She is admitted for elective repeat section. PROCEDURE IN DETAIL: The patient was brought to the OR, properly identified, and after adequate level of spinal anesthesia with a Cox catheter in the bladder, the patient was prepped and draped in sterile fashion as usual. Low transverse Pfannenstiel skin incision was done. Shai's fascia and rectus fascia were opened in direction of the incision. The 2 recti muscles were and the peritoneal cavity was entered. Bladder flap was raised in the usual manner pushing the bladder away from the lower uterine segment. Low transverse uterine incision done and extended manually with hand. The fetus was in the cephalic presentation, delivered without any problem, and cried immediately. Handed to the nurse resuscitator, who was present at the time of delivery of the patient. The baby's score later on reported to be 8 and 9. The weight is not available. The placenta delivered spontaneous, complete, and intact and then repair of the lower uterine segment done with 2-0 Vicryl continuous interlocking in 2 layers. Reperitonealization done with 3-0 Vicryl continuous and then the peritoneal cavity evacuated completely from all blood and blood clot and closed with 3-0 Vicryl continuous. The rectus fascia was closed with #1 PDS single strand continuous and Shai's fascia with 3-0 Vicryl continuous. The skin closed with 3-0 Vicryl on a Martir needle in a subcuticular fashion. Instrument and sponge count was correct. The patient tolerated the procedure well, went to recovery room in stable general condition. LUTHER / ROBERT /[id number]
[2019-08-02] MEDS: Ketorolac 30 MG/ML SDV IVPUSH SCH ×3 (06:09→11:19)
--- NOTE | 2019-08-02 07:02 | PCM48HPAN ---
Post Anesthesia Note - EVALUATION WITHIN 48HRS OF ANESTHETIC Vital Signs in Normal Range: Yes Patient Participated in Evaluation: Yes Respiratory Function Stable: Yes Airway Patent: Yes Cardiovascular Function Stable: Yes Hydration Status Stable: Yes Pain Control Satisfactory: Yes Nausea and Vomiting Control Satisfactory: Yes Mental Status Recovered: Yes Vital Signs: Last Vital Signs Temp 97.5 F 08/02/19 04:15 Pulse 82 08/02/19 04:15 Resp 14 08/02/19 04:15 BP 106/68 08/02/19 04:15 Pulse Ox 97 08/02/19 04:15
--- NOTE | 2019-08-02 08:21 | PCM.PNPP ---
- General Info Date of Service: 08/02/19 Functional Status: Reports: Pain Controlled - Review of Systems General: Reports: No Symptoms HEENT: Reports: No Symptoms Pulmonary: Reports: No Symptoms Cardiovascular: Reports: No Symptoms Gastrointestinal: Reports: No Symptoms Genitourinary: Reports: No Symptoms Musculoskeletal: Reports: No Symptoms Skin: Reports: No Symptoms Neurological: Reports: No Symptoms Psychiatric: Reports: No Symptoms - General Info Date of Service: 08/02/19 - Patient Data Vital Signs - Most Recent: Last Vital Signs Temp 36.4 C 08/02/19 04:15 Pulse 95 08/02/19 06:00 Resp 19 08/02/19 06:00 BP 116/72 08/02/19 06:00 Pulse Ox 98 08/02/19 06:00 Weight - Most Recent: 71.305 kg I&O - Last 24 Hours: Intake & Output 08/01/19 08/02/19 08/02/19 22:59 06:59 14:59 Intake Total 1590 Output Total 300 1275 Balance -300 315 Lab Results - Last 24 Hours: Laboratory Results - last 24 hr 08/01/19 08/01/19 08/02/19 Range/Units 10:13 10:13 05:52 WBC 8.80 (4.0-11.0) K/uL RBC 4.30 (4.30-5.90) M/uL Hgb 12.6 11.0 L (12.0-16.0) g/dL Hct 38.1 33.9 L (36.0-46.0) % MCV 88.6 (80.0-98.0) fL MCH 29.3 (27.0-32.0) pg MCHC 33.1 (31.0-37.0) g/dL RDW Std Deviation 50.1 (28.0-62.0) fl RDW Coeff of Oskar 16 H (11.0-15.0) % Plt Count 180 (150-400) K/uL MPV 10.80 (7.40-12.00) fL Nucleated RBC % 0.0 /100WBC Nucleated RBCs # 0 K/uL Blood Type O POSITIVE Antibody Screen NEGATIVE Med Orders - Current: Current Medications Bisacodyl (Dulcolax) 10 mg RECTAL ONETIME PRN PRN Reason: Constipation Diphenhydramine HCl (Benadryl) 25 mg IVPUSH Q6H PRN PRN Reason: Itching or Nausea Last Admin: 08/01/19 14:55 Dose: 25 mg Docusate Sodium (Colace) 100 mg PO BID [facility] Emollient Ointment (Lansinoh Hpa) 0 gm TOP ASDIRECTED PRN PRN Reason: Sore Nipples Lactated Ringer's (Ringers, Lactated) 1,000 mls @ 500 mls/hr IV BOLUS [facility] Last Admin: 08/01/19 10:42 Dose: 999 mls/hr Oxytocin/Sodium Chloride (Oxytocin 30 Unit/500 Ml-Ns) 30 unit in 500 mls @ 250 mls/hr IV TITRATE [facility] Tranexamic Acid 1,000 mg/ (Sodium Chloride) 110 mls @ 660 mls/hr IV ONETIME PRN PRN Reason: Bleeding Lactated Ringer's (Ringers, Lactated) 1,000 mls @ 125 mls/hr IV ASDIRECTED [facility] Last Admin: 08/01/19 16:07 Dose: 125 mls/hr Ibuprofen (Motrin) 800 mg PO Q8H PRN PRN Reason: mild pain or fever Ketorolac Tromethamine (Toradol) 30 mg IVPUSH Q6H [facility] Stop: 08/02/19 11:31 Last Admin: 08/02/19 06:09 Dose: 30 mg Methylergonovine Maleate (Methergine) 0.2 mg IM ONETIME PRN PRN Reason: Excessive Vaginal Bleeding Misoprostol (Cytotec) 1,000 mcg RECTAL ONETIME PRN PRN Reason: excessive bleeding Nalbuphine HCl (Nubain) 2.5 mg IVPUSH Q3H PRN PRN Reason: Pruritis Stop: 08/02/19 10:53 Ondansetron HCl (Zofran) 4 mg IVPUSH Q4H PRN PRN Reason: Nausea/Vomiting Last Admin: 08/01/19 10:45 Dose: 4 mg Oxycodone/Acetaminophen (Percocet 325-5 Mg) 1 tab PO Q6H PRN PRN Reason: Pain Oxycodone/Acetaminophen (Percocet 325-5 Mg) 1 tab PO ONETIME PRN PRN Reason: Pain (moderate 4-6) Oxycodone/Acetaminophen (Percocet 325-5 Mg) 1 tab PO Q4H PRN PRN Reason: Pain (moderate 4-6) Oxycodone/Acetaminophen (Percocet 325-5 Mg) 2 tab PO Q4H PRN PRN Reason: Pain (moderate 4-6) Oxytocin (Pitocin) 10 unit IM ASDIRECTED PRN PRN Reason: Excessive Vaginal Bleeding Sodium Chloride (Saline Flush) 10 ml FLUSH ASDIRECTED PRN PRN Reason: Keep Vein Open Sodium Chloride (Saline Flush) 2.5 ml FLUSH ASDIRECTED PRN PRN Reason: Keep Vein Open Last Admin: 08/02/19 06:15 Dose: 2.5 ml Sodium Chloride (Normal Saline) 10 ml IV ASDIRECTED PRN PRN Reason: IV Use Discontinued Medications Cefazolin Sodium (Ancef) Confirm Administered Dose 2 gm .ROUTE .STK-MED ONE Stop: 08/01/19 10:37 Citric Acid/Sodium Citrate (Bicitra Solution) 30 ml PO ONETIME ONE Stop: 08/01/19 09:49 Last Admin: 08/01/19 10:42 Dose: 30 ml Cefazolin Sodium/Dextrose 1 gm (/ Premix) 50 mls @ 100 mls/hr IV ONETIME ONE Stop: 08/01/19 10:17 Sodium Chloride (Normal Saline) Confirm Administered Dose 20 mls @ as directed .ROUTE .STK-MED ONE Stop: 08/01/19 10:37 Morphine Sulfate (Duramorph Pf) Confirm Administered Dose 10 mg .ROUTE .STK-MED ONE Stop: 08/01/19 09:50 Octyl Cyanoacrylate (Dermabond Advance) Confirm Administered Dose 1 applic .ROUTE .STK-MED ONE Stop: 08/01/19 08:27 Ondansetron HCl (Zofran) Confirm Administered Dose 4 mg .ROUTE .STK-MED ONE Stop: 08/01/19 09:54 Oxytocin (Pitocin) Confirm Administered Dose 20 unit .ROUTE .STK-MED ONE Stop: 08/01/19 09:54 Phenylephrine HCl (Phenylephrine In Ns 100 Mcg/Ml) Confirm Administered Dose 1 mg .ROUTE .STK-MED ONE Stop: 08/01/19 10:53 Phenylephrine HCl (Phenylephrine In Ns 100 Mcg/Ml) Confirm Administered Dose 1 mg .ROUTE .STK-MED ONE Stop: 08/01/19 11:15 - Infant Interaction Disposition, : [place] in Room with Family Interaction: Holding Infant Feeding: Attempted ; Nursed Fair/Poor Support Person: - Recovery Exam Fundal Tone: Firm Fundal Level: At Umbilicus Fundal Placement: Right Lochia Amount: Small Lochia Color: Rubra/Red Perineum Description: Intact, Minimal Bruising/Swelling Episiotomy/Laceration: None Bladder Status: Indwelling Catheter in Place Urinary Elimination: Indwelling Catheter - Exam General: Alert, Oriented HEENT: Pupils Equal Neck: Supple Lungs: Clear to Auscultation, Normal Respiratory Effort Cardiovascular: Regular Rate, Regular Rhythm GI/Abdominal Exam: Normal Bowel Sounds, Soft, Non-Tender, No Organomegaly, No Distention, No Abnormal Bruit, No Mass, Pelvis Stable Extremities: Normal Inspection, Normal Range of Motion, Non-Tender, No Pedal Edema, Normal Capillary Refill Skin: Warm, Dry, Intact Wound/Incisions: Healing Well Neurological: No New Focal Deficit Psy/Mental Status: Alert, Normal Affect, Normal Mood - Problem List Review Problem List Initiated/Reviewed/Updated: Yes - My Orders Last 24 Hours: My Active Orders 08/01/19 09:48 Notify Provider Vital Signs [RC] PRN Sodium Chloride 0.9% [Normal Saline] 10 ml IV ASDIRECTED PRN Sodium Chloride 0.9% [Saline Flush] 10 ml FLUSH ASDIRECTED PRN Sodium Chloride 0.9% [Saline Flush] 2.5 ml FLUSH ASDIRECTED PRN Resuscitation Status Routine 08/01/19 09:49 Up ad Amanda [RC] ASDIRECTED Vital Signs [RC] PER UNIT ROUTINE Peripheral IV Insertion Adult [OM.PC] Routine Schedule Procedure [COMM] Per Unit Routine 08/01/19 10:00 Lactated Ringers [Ringers, Lactated] 1,000 ml IV BOLUS Oxytocin/0.9 % Sodium Chloride [Oxytocin 30 Unit/500 ML-NS] 30 unit in 500 ml IV TITRATE 08/01/19 10:08 RAPID PLASMA REAGIN, QUANT [REF] Routine 08/01/19 11:23 Patient Status [ADT] Routine Ambulate [RC] PER UNIT ROUTINE Antiembolic Devices [RC] PER UNIT ROUTINE Communication Order [RC] PER UNIT ROUTINE Communication Order [RC] PER UNIT ROUTINE Communication Order [RC] Per Unit Routine May Shower [RC] ASDIRECTED RT Incentive Spirometry [RC] Q2HWA Vital Signs [RC] PER UNIT ROUTINE Acetaminophen/oxyCODONE [Percocet 325-5 MG] 1 tab PO Q4H PRN Acetaminophen/oxyCODONE [Percocet 325-5 MG] 2 tab PO Q4H PRN Bisacodyl [Dulcolax] 10 mg RECTAL ONETIME PRN Lanolin [Lansinoh HPA] See Dose Instructions TOP ASDIRECTED PRN Methylergonovine [Methergine] 0.2 mg IM ONETIME PRN Ondansetron [Zofran] 4 mg IVPUSH Q4H PRN Oxytocin [Pitocin] 10 unit IM ASDIRECTED PRN Tranexamic Acid [Cyklokapron] 1,000 mg Sodium Chloride 0.9% [Normal Saline] 100 ml IV ONETIME diphenhydrAMINE [Benadryl] 25 mg IVPUSH Q6H PRN miSOPROStoL [Cytotec] 1,000 mcg RECTAL ONETIME PRN Assess Lochia [WOMSER] Per Unit Routine Assess Uterine Involution [WOMSER] Per Unit Routine Breast Pump [WOMSER] Per Unit Routine Peripheral IV Discontinue [OM.PC] Routine Sequential Compression Device [OM.PC] Per Unit Routine 08/01/19 11:30 Ketorolac [Toradol] 30 mg IVPUSH Q6H Lactated Ringers [Ringers, Lactated] 1,000 ml IV ASDIRECTED 08/01/19 21:00 Docusate Sodium [Colace] 100 mg PO BID 08/01/19 Dinner Regular Diet [DIET] 08/02/19 17:30 Ibuprofen [Motrin] 800 mg PO Q8H PRN - Assessment Assessment:: Status post repeat section postoperative day #1 the patient is doing well we are planning to discharge her in a.m. - Plan Plan:: IUP 39+1 weks admitted for elective repeat C/section.
[2019-08-02] MEDS: Docusate Sodium 100 MG Cap PO SCH ×3 (09:55→21:42)
[2019-08-02] MEDS: Acetaminophen/oxyCODONE 325-5 MG Tab PO PRN ×2 (17:29→21:47)
[2019-08-02] MEDS: Ibuprofen 800 MG Tab PO PRN (23:52)
--- NOTE | 2019-08-03 07:13 | PCM.DCSUM1 ---
Discharge Summary - Hospital Course Diagnosis: Stroke: No Modified Mcleod Scale: No Symptoms at All Modified Mcleod Scale Score: 0 - Discharge Data Discharge Date: 08/03/19 Discharge Disposition: Home, Self-Care 01 Condition: Good - Referral to Home Health Primary Care Physician: PCP None - Discharge Diagnosis/Problem(s) (1) delivery delivered SNOMED Code(s): 297171365 ICD Code: O82 - ENCOUNTER FOR DELIVERY WITHOUT INDICATION Status: Acute Priority: High Current Visit: Yes - Patient Summary/Data Operative Procedure(s) Performed: Repeat C/section. - Patient Instructions Diet: Usual Diet as Tolerated Activity: As Tolerated, No Strenuous Activities, Rest and Relax Today Driving: Do Not Drive Showering/Bathing: May Shower Notify Provider of: Fever, Increased Pain, Swelling and Redness, Drainage, Nausea and/or Vomiting Other/Special Instructions: Discharge home with . Follow up in 1 week for post op visit and 6 weeks for - Discharge Plan *PRESCRIPTION DRUG MONITORING PROGRAM REVIEWED*: Not Applicable *COPY OF PRESCRIPTION DRUG MONITORING REPORT IN PATIENT SAMREEN: Not Applicable Prescriptions/Med Rec: Acetaminophen/oxyCODONE [Percocet 325-5 MG] 1 - 2 tab PO Q4H PRN #30 tablet PRN Reason: Pain (Moderate 4-6) Ibuprofen [Motrin] 800 mg PO Q8H PRN #90 tablet PRN Reason: mild pain or fever Home Medications: Home Meds Calcium Carbonate [Tums] 1 tab.chew CHEW ASDIRECTED PRN 07/26/19 [History] Pnv No.95/Ferrous Fum/Folic AC [ Vitamin Tablet] 1 tab PO DAILY [History] Acetaminophen/oxyCODONE [Percocet 325-5 MG] 1 - 2 tab PO Q4H PRN #30 tablet [Rx] Ibuprofen [Motrin] 800 mg PO Q8H PRN #90 tablet 08/03/19 [Rx] Oxygen Therapy Mode: Room Air Patient Handouts: Care After Delivery Referrals: [facility] [Outside] Esdras Chamberlain MD [Physician] - (1 week- August 07@ 1:30pm w/ Dr. Chamberlain 6 week- September 11@ 15:00pm w/ Dr. Chamberlain ) - Discharge Summary/Plan Comment DC Time >30 min.: Yes - General Info Date of Service: 08/03/19 Admission Dx/Problem (Free Text: Admission Diagnosis/Problem Admission Diagnosis/Problem Functional Status: Reports: Pain Controlled, Tolerating Diet, Ambulating, Urinating - Review of Systems General: Reports: No Symptoms HEENT: Reports: No Symptoms Pulmonary: Reports: No Symptoms Cardiovascular: Reports: No Symptoms Gastrointestinal: Reports: No Symptoms Genitourinary: Reports: No Symptoms Musculoskeletal: Reports: No Symptoms Skin: Reports: No Symptoms Neurological: Reports: No Symptoms Psychiatric: Reports: No Symptoms - Patient Data Vitals - Most Recent: Last Vital Signs Temp 36.3 C 08/03/19 04:26 Pulse 88 08/03/19 04:26 Resp 16 08/03/19 04:26 BP 117/72 08/03/19 04:26 Pulse Ox 98 08/03/19 04:26 Weight - Most Recent: 71.305 kg I&O - Last 24 hours: Intake & Output 08/02/19 08/03/19 08/03/19 22:59 06:59 14:59 Output Total 500 Balance -500 Med Orders - Current: Current Medications Bisacodyl (Dulcolax) 10 mg RECTAL ONETIME PRN PRN Reason: Constipation Diphenhydramine HCl (Benadryl) 25 mg IVPUSH Q6H PRN PRN Reason: Itching or Nausea Last Admin: 08/01/19 14:55 Dose: 25 mg Docusate Sodium (Colace) 100 mg PO BID [facility] Last Admin: 08/02/19 21:42 Dose: 100 mg Emollient Ointment (Lansinoh Hpa) 0 gm TOP ASDIRECTED PRN PRN Reason: Sore Nipples Lactated Ringer's (Ringers, Lactated) 1,000 mls @ 500 mls/hr IV BOLUS [facility] Last Admin: 08/01/19 10:42 Dose: 999 mls/hr Oxytocin/Sodium Chloride (Oxytocin 30 Unit/500 Ml-Ns) 30 unit in 500 mls @ 250 mls/hr IV TITRATE [facility] Tranexamic Acid 1,000 mg/ (Sodium Chloride) 110 mls @ 660 mls/hr IV ONETIME PRN PRN Reason: Bleeding Lactated Ringer's (Ringers, Lactated) 1,000 mls @ 125 mls/hr IV ASDIRECTED [facility] Last Admin: 08/01/19 16:07 Dose: 125 mls/hr Ibuprofen (Motrin) 800 mg PO Q8H PRN PRN Reason: mild pain or fever Last Admin: 08/02/19 23:52 Dose: 800 mg Methylergonovine Maleate (Methergine) 0.2 mg IM ONETIME PRN PRN Reason: Excessive Vaginal Bleeding Misoprostol (Cytotec) 1,000 mcg RECTAL ONETIME PRN PRN Reason: excessive bleeding Ondansetron HCl (Zofran) 4 mg IVPUSH Q4H PRN PRN Reason: Nausea/Vomiting Last Admin: 08/01/19 10:45 Dose: 4 mg Oxycodone/Acetaminophen (Percocet 325-5 Mg) 1 tab PO Q6H PRN PRN Reason: Pain Oxycodone/Acetaminophen (Percocet 325-5 Mg) 1 tab PO ONETIME PRN PRN Reason: Pain (moderate 4-6) Oxycodone/Acetaminophen (Percocet 325-5 Mg) 1 tab PO Q4H PRN PRN Reason: Pain (moderate 4-6) Last Admin: 08/02/19 21:47 Dose: 1 tab Oxycodone/Acetaminophen (Percocet 325-5 Mg) 2 tab PO Q4H PRN PRN Reason: Pain (moderate 4-6) Oxytocin (Pitocin) 10 unit IM ASDIRECTED PRN PRN Reason: Excessive Vaginal Bleeding Sodium Chloride (Saline Flush) 10 ml FLUSH ASDIRECTED PRN PRN Reason: Keep Vein Open Sodium Chloride (Saline Flush) 2.5 ml FLUSH ASDIRECTED PRN PRN Reason: Keep Vein Open Last Admin: 08/02/19 06:15 Dose: 2.5 ml Sodium Chloride (Normal Saline) 10 ml IV ASDIRECTED PRN PRN Reason: IV Use Discontinued Medications Cefazolin Sodium (Ancef) Confirm Administered Dose 2 gm .ROUTE .STK-MED ONE Stop: 08/01/19 10:37 Citric Acid/Sodium Citrate (Bicitra Solution) 30 ml PO ONETIME ONE Stop: 08/01/19 09:49 Last Admin: 08/01/19 10:42 Dose: 30 ml Cefazolin Sodium/Dextrose 1 gm (/ Premix) 50 mls @ 100 mls/hr IV ONETIME ONE Stop: 08/01/19 10:17 Last Admin: 08/02/19 09:55 Dose: Not Given Sodium Chloride (Normal Saline) Confirm Administered Dose 20 mls @ as directed .ROUTE .STK-MED ONE Stop: 08/01/19 10:37 Ketorolac Tromethamine (Toradol) 30 mg IVPUSH Q6H [facility] Stop: 08/02/19 11:31 Last Admin: 08/02/19 11:19 Dose: Not Given Morphine Sulfate (Duramorph Pf) Confirm Administered Dose 10 mg .ROUTE .STK-MED ONE Stop: 08/01/19 09:50 Nalbuphine HCl (Nubain) 2.5 mg IVPUSH Q3H PRN PRN Reason: Pruritis Stop: 08/02/19 10:53 Octyl Cyanoacrylate (Dermabond Advance) Confirm Administered Dose 1 applic .ROUTE .STK-MED ONE Stop: 08/01/19 08:27 Ondansetron HCl (Zofran) Confirm Administered Dose 4 mg .ROUTE .STK-MED ONE Stop: 08/01/19 09:54 Oxytocin (Pitocin) Confirm Administered Dose 20 unit .ROUTE .STK-MED ONE Stop: 08/01/19 09:54 Phenylephrine HCl (Phenylephrine In Ns 100 Mcg/Ml) Confirm Administered Dose 1 mg .ROUTE .STK-MED ONE Stop: 08/01/19 10:53 Phenylephrine HCl (Phenylephrine In Ns 100 Mcg/Ml) Confirm Administered Dose 1 mg .ROUTE .STK-MED ONE Stop: 08/01/19 11:15 - Exam General: Reports: Alert, Oriented, Cooperative, No Acute Distress Lungs: Reports: Normal Respiratory Effort GI/Abdominal Exam: Soft, Non-Tender, Pelvis Stable (Female) Exam: Deferred, Vaginal Bleeding Rectal (Female) Exam: Deferred Back Exam: Reports: Normal Inspection, Full Range of Motion Extremities: Normal Inspection, Normal Range of Motion, Non-Tender, No Pedal Edema, Normal Capillary Refill Skin: Reports: Warm, Dry, Intact Neurological: Reports: No New Focal Deficit, Normal Gait, Normal Speech, Normal Tone, Strength Equal Bilateral Psy/Mental Status: Reports: Alert, Normal Affect, Normal Mood
[2019-08-03] MEDS: Docusate Sodium 100 MG Cap PO SCH (08:52)
[2019-08-03 08:58] VITALS: BP 119/78; PULSE 86
[2019-08-03] MEDS: Ibuprofen 800 MG Tab PO PRN (10:12)
== END 2019-08-03 13:04 | disposition home or self-care (01) | DRG 540 ==
LOC: MW.OB 08:00
PROVIDERS: ADMIT Obstetrics & Gynecology; ATTEND Obstetrics & Gynecology
PROC: 10D00Z1 Extraction of Products of Conception, Low, Open Approach (ICD-10-PCS; principal; 2019-08-01)
DX: O34.211 Maternal care for low transverse scar from previous cesarean delivery (principal); Z37.0 Single live birth; Z90.49 Acquired absence of other specified parts of digestive tract; Z91.013 Allergy to seafood; Z3A.39 39 weeks gestation of pregnancy
CPT/HCPCS: 01961; 36415; 59025; 85014; 85018; 85027; 86593; 86850; 86900; 86901; A9270-GY; J0690; J1200; J1885; J2270; J2370; J2405; J2590; J7120